=== PATIENT | female | born 2000 | race Caucasian/White ===

== ENCOUNTER 2021-04-29 12:49 | Emergency (ER) | payer OTHER, SELFPAY ==
[2021-04-29 12:57] VITALS: BP 141/87; PULSE 105; RESP 20; TEMP 37.3; O2SAT 100; BMI 46.5
[2021-04-29 13:36] LABS: COVID-19 Test Negative (Negative); IDNOW Serial# 9DD0AD1C
--- NOTE | 2021-04-29 13:52 | ED.GENADULT ---
HPI - General Adult General Chief complaint: Dyspnea Stated complaint: diff breathing Time Seen by Provider: 04/29/21 13:52 Source: patient Limitations: no limitations History of Present Illness HPI narrative: Patient presents to the ER with longstanding history of asthma. Increased use of inhalers lately. Patient also has a congested cough that is productive yellow sputum. Patient states she has had some posttussive vomiting after coughing fit. Patient states he also ran out of her inhaler. Patient has not recently been on steroids. 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 Patient does not smoke tobacco. No history of COVID-19. Symptoms are mild to moderate symptoms have improved since using her inhaler. Related Data Previous Rx's Medication Instructions Recorded albuterol sulfate [ProAir HFA] 2 puff INHALATION Q4-6H PRN #8.5 g 04/29/21 azithromycin [Zithromax] See Rx Instructions .ROUTE 04/29/21 .COMPLEX #6 tab benzonatate [Tessalon Perles] 100 mg PO BID PRN #10 cap 04/29/21 Allergies Allergy/AdvReac Type Severity Reaction Status Date / Time No Known Allergies Allergy Unverified 07/16/20 16:53 Pt states no known allergy to Allergy Unknown Uncoded 08/11/17 00:00 Review of Systems Review of Systems: Yes all other systems are reviewed and are negative Constitutional: Constitutional: Denies chills, Denies fever(s), Denies headache(s), Denies snoring and Denies weakness ENT: Denies headache(s), Reports nasal congestion, Denies neck pain and Denies sore throat Cardiovascular: Cardiovascular: Denies chest pain, Denies chest pain with activity and Reports dyspnea Respiratory: Respiratory: Reports cough, Denies hemoptysis, Reports dyspnea and Denies snoring Gastrointestinal: Gastrointestinal: Denies nausea and Denies vomiting Musculoskeletal: Musculoskeletal: Reports no additional musculoskeletal complaints and Denies neck pain Neurologic: Denies headache(s) and Denies weakness PMFSH Past Medical History Attestation statement: The following information was validated with the patient. Medical History Asthma Social History Social History Advance Directives: No Advance Directives Information Provided: No Patient : No Physical Exam Vital Signs: Vital Signs: Last Vital Signs Temp 99.1 F 04/29/21 12:57 Pulse 105 H 04/29/21 12:57 Resp 20 04/29/21 12:57 BP 141/87 H 04/29/21 12:57 Pulse Ox 100 04/29/21 12:57 Body Mass Index 46.5 vital signs have been reviewed as normal and appeared to be correct. Blood pressure normal. Heart rate normal. Respiration rate normal. Temperature normal. Oxygen saturation normal. Appearance: Alert. Oriented X3. No acute distress. Head: Normal external exam. Normocephalic. Atraumatic. Eyes: PERRLA. EOMI. ENT: Pharynx normal. Uvula midline. Moist mucous membranes. Neck: Soft full range of motion CVS: Heart regular rate and rhythm no murmurs and rubs Respiratory: Breath sounds clear no use of accessory muscles Skin: Skin warm and dry. Normal skin color. Normal skin turgor. Extremities: No lower extremity edema. Extremities exhibit normal range of motion. Extremities nontender. Neuro: Oriented X 3. No motor deficit. No sensory deficit. Reflexes normal. Course Course Course Narrative: Asthma exacerbation Acute bronchitis Viral syndrome Reactive airway disease Seasonal allergies COVID-19 screening 1:55 p.m. lung sounds are clear to auscultation no accessory muscle use plan to give patient a for inhaler at this time and put patient on Tessalon Perles for cough COVID-19 test is negative. Medical Decision Making Lab Data Labs: Lab Results 04/29/21 Range/Units 13:13 COVID-19 (RICARDA) Negative (Negative) COVID-19 Clin Com See Note Discharge Plan Discharge Clinical Impression: Asthma with exacerbation Patient Disposition: Home, Self-Care Instructions: Asthma (ED) Additional Instructions: COVID-19 test is negative it is recommended you get vaccinated continue your inhalers as directed Prescriptions: New azithromycin [Zithromax] 250 mg tablet See Rx Instructions .ROUTE .COMPLEX Qty: 6 RF: 0 albuterol sulfate [ProAir HFA] 90 mcg/actuation HFA aerosol inhaler 2 puff inhalation Q4-6H PRN (Reason: shortness of breath or wheezing) Qty: 8.5 RF: 2 benzonatate [Tessalon Perles] 100 mg capsule 100 mg PO BID PRN (Reason: cough) Qty: 10 RF: 0
== END 2021-04-29 14:16 | disposition home or self-care (01) ==
PROVIDERS: Emergency Provider Emergency Medicine Emergency Medical Services
DX: J45.901 Unspecified asthma with (acute) exacerbation (principal); Z20.822 Contact with and (suspected) exposure to COVID-19
CPT/HCPCS: 36415; 87635; 99282; 99283; 99284

== ENCOUNTER 2025-06-27 12:26 | Emergency (ER) | payer OTHER, SELFPAY ==
--- OUTSIDE RECORDS SUMMARY | 2025-06-26 13:15 | XMS_ITS | Encounter Summary ---
Author Organization [facility] Address [address] [place] [address] Care Team Providers Care Shale Planer Operator Name Role Phone Brandon Crabtree Primary Care Provider [phone] Reason for Referral * Consultation (Urgent) - Authorized Specialty Diagnoses / Procedures Referred By Contac t Referred To Contact Cardiology Diagnoses PVC (premature ventricular contraction) Ita Chapman MD [address] [place] [address] Phone: tel: fax: Brenna Key MD [address] [facility] [address] [place] [address] Phone: tel: fax: Referral ID Status Reason Start Date Expiration Date Visits Requested Visits Authorized [id number] Authorized Specialty Services Required 06/26/2025 06/26/2026 12 12 Reason for Visit * Reason Comments Dizziness X 1 YR. Worse in aft ernoons. UTI Frequent urination a t night x 1 week Encounter Details Date Type Department Care Team ([facility] st Contact Info) Description 06/26/2025 1:15 PM EDT Office Visit Adult Medicine [address] [phone] tIa Chapman MD [address] [place] [address] Dizziness (Primary Dx); Urinary symptom or sign; PVC (premature ventricular contraction) Social History Tobacco Use Types Packs/Day Years Used Date Smoking Tobacco: Never Smokeless Tobacco: Never Tobacco Cessation:Counseling Given: Not Answered Alcohol Use Standard Drinks/Week Comments Yes 0 (1 standard drink = 0.6 oz pur e alcohol) Housing Instability Answer Date Recorde d Are you worried that in the next 2 months you may not have stable housing? No 03/14/2025 Food Access & Nutrition Answer Date Rec orded Do you have access to a vari ety of food including fruits and vegetables? Yes 03/14/2025 Health Literacy Answer Date Recorded How often do you need to hav e someone help you when you read instructions, pamphlets, or other written material from your doctor or pharmacy? Never 03/14/2025 Caregiver: How often do you need to have someone help you when you read instructions, pamphlets, or other written material from your doctor or pharmacy? Not on file 03/14/2025 Financial Risk Answer Date Recorded How hard is it for you to pa y for the very basics like food, housing, medical care, and air conditioning / heating? Not very hard 03/14/2025 Transportation Answer Date Recorded Has the lack of transportati on kept you from meetings, work, or from getting things needed for daily living? No Has the lack of transportati on kept you from medical appointments or from getting medications? No 03/14/2025 Social Isolation Answer Date Recorded How often do you feel lonely or isolated from th ose around you? Never 03/14/2025 Food Risk Answer Date Recorded Within the past 12 months we worried whether our food would run out before we got money to buy more. Never true 03/14/2025 Within the past 12 months th e food we bought just didn't last and we didn't have money to get more. Never true 03/14/2025 Dependent Care Answer Date Recorded Do you need help finding or paying for care for your loved ones. For example, childcare aide or elderly care for an older adult? No 03/14/2025 Education Answer Date Recorded Do you think completing more education or training, like finishing a GED, going to college, or learning a trade, would be helpful for you? No 03/14/2025 Employment and Income Answer Date Recor ded During the last four weeks, have you been actively looking for work? No 03/14/2025 Living Situation Answer Date Recorded What is your living situation? 0 03/14/2025 Comments No Sex and Gender Information Value Date Recorded Sex Assigned at Not on file Legal Sex Female 5:16 AM EST Gender Identity Not on file Sexual Orientation Not on file documented as of this encounter Last Filed Vital Signs Vital Sign Reading Time Taken Comments Blood Pressure 134/76 06/26/2025 1:23 PM EDT Pulse 47 06/26/2025 1:23 PM EDT Temperature 36.3 C (97.4 F) 06/26/2025 1:23 PM EDT Respiratory Rate 14 06/26/2025 1:23 PM EDT Oxygen Saturation 97% 06/26/2025 1:23 PM EDT Inhaled Oxygen Concentration - - Weight 129 kg (284 lb) 06/26/2025 1:23 PM EDT Height 165.1 cm (5' 5 ) 06/26/2025 1:23 PM EDT Body Mass Index 47.26 06/26/2025 1:23 PM EDT documented in this encounter Progress Notes * Aliza Hillman MA - 06/26/2025 1:15 PM EDT Bp lying down 124/71 pulse 73 Bp sitting up 135/75 pulse 43 Bp standing up 114/67 pulse 55 Blood sugar 96 1 hr pp Urine dip all negative Electrocardiogram performed and reviewed by Dr. Ita Banks MD. * Ita Chapman MD - 06/26/2025 1:15 PM EDT Images from the original note were not included. Chief Complaint Clara Womack is a 25 y.o. female presenting for Dizziness (X 1 YR. Worse in afternoons. ) and UTI (Frequent urination at night x 1 week) Subjective Patient presents to the office today complaining of exacerbation of dizziness for aprox one year, exacerbated for the last week, worse in the afternoons. Does not identify any clear triggers. Strong family history of Afib. She also complains of urinary symptoms, no fever, chills. The following portions of the patient's history were reviewed by a provider in this encounter and updated as appropriate: Allergies: She has No Known Allergies. Medications: Current Outpatient Medications Medication Instructions albuterol HFA (Ventolin HFA) 90 mcg/actuation inhaler 2 puffs, inhalation, Every 4 hours PRN cetirizine (ZYRTEC) 10 mg, oral, Daily escitalopram (LEXAPRO) 10 mg, oral, Daily fluticasone propionate (FLONASE) 50 mcg/actuation nasal spray 2 Sprays by Nasal route daily. furosemide (LASIX) 20 mg, oral, Daily PRN levothyroxine (SYNTHROID, LEVOTHROID) 50 mcg, oral, Daily predniSONE (DELTASONE) 10 mg tablet Take 2 tabs PO daily for 3 days then 1 tab PO daily for 4 days Objective BP 134/76 Pulse (!) 47 Temp 36.3 ??C (97.4 ??F) (Temporal) Resp 14 Ht 1.651 m (65 ) Wt 129 kg (284 lb) BMI 47.26 kg/m?? SpO2: 97 % Physical Exam Vitals reviewed. Constitutional: Appearance: Normal appearance. Cardiovascular: Rate and Rhythm: Normal rate and regular rhythm. Heart sounds: Normal heart sounds. Pulmonary: Effort: Pulmonary effort is normal. Breath sounds: Normal breath sounds. Musculoskeletal: General: No swelling. Normal range of motion. Cervical back: Neck supple. Skin: General: Skin is warm. Neurological: General: No focal deficit present. Mental Status: She is alert. VS fluctuant Bp lying down 124/71 pulse 73 Bp sitting up 135/75 pulse 43 Bp standing up 114/67 pulse 55 Lab Results Component Value Date TSH 2.59 03/14/2025 Assessment/Plan Assessment & Plan Dizziness Patient complains of dizziness for 1 year, exacerbation over the last week. She does not identify any triggers. Patient admits been drinking coffee and energy drinks last year, however she cut down with them. Currently not on any supplements, herbs, [id number] medications. She is on levothyroxine 50 mcg a day. Last TSH within normal limits in February. EKG in the office showed frequent PVCs. CBG was 94. Will check a BMP, magnesium levels. Referral was placed for urgent cardiology evaluation. Red flags were discussed with the patient today. Orders: POC glucose manually resulted ECG 12 lead Basic metabolic panel; Future Magnesium; Future Urinary symptom or sign Urine dipstick was negative for infection. Recommended to increase water intake, cranberry juice Orders: POC Urine Auto W/O Micro PVC (premature ventricular contraction) As above. Orders: Basic metabolic panel; Future Magnesium; Future Ambulatory referral to Cardiology; Future All questions and concerns were addressed. Patient verbalizes understanding and agrees with above treatment plan. Patient was advised to contact the office with any worsening symptoms or if new or existing problems arise. Patient to follow- up with her primary care team. Ita Mendoza MD ADULT MEDICINE [address] [address] Dept: [phone] Dept Date of Visit: 06/26/2025 documented in this encounter Plan of Treatment Upcoming Encounters Date Type Department Care Team (Late st Contact Info) Description 07/08/2025 10:20 AM EDT Office Visit [facility] [address] [facility] [address] [place] [phone] Brenna Key MD [address] [place] [address] [address] [place] [address] 07/25/2025 2:30 PM EDT Office Visit Hematology Oncology [address] [place] [phone] Thomas Cowart MD [address] [place] [phone] Scheduled Referrals Name Type Priority Associated Diagnoses Order Schedule Ambulatory referral to Cardiology Outpatient Referral Routine PVC (premature ventricular contraction) 1 Occurrences starting 06/26/2025 until 06/26/2026 documented as of this encounter Procedures Procedure Name Priority Date/Time Associated Diagnosis Comments ECG 12-LEAD Routine 06/26/2025 3:25 PM EDT Dizziness POC URINE AUTO W/O MICRO Routine 06/26/2025 1:48 PM EDT Urinary symptom or sign POC GLUCOSE Routine 06/26/2025 1:47 PM EDT Dizziness documented in this encounter Results * ECG 12 lead (06/26/2025 3:25 PM EDT) Ita Chapman MD ECG ORDERABLES Fi nal Result * Magnesium (06/26/2025 2:08 PM EDT) [facility] Magnesium 2.0 1.9 - 2.6 mg/dL LAB CHEMISTRY METHOD 06/26/2025 5:08 PM EDT [facility] Blood Venous blood specimen / Unknown Venipuncture / Unknown 06/26/2025 2:08 PM EDT 06/26/2025 2:08 PM EDT Ita Chapman MD LAB BLOOD ORDERABL ES Final Result [facility] [address] [place] [address], [place] [phone] * Basic metabolic panel (06/26/2025 2:08 PM EDT) [facility] Sodium 137 133 - 145 mmol/L LAB CHEMISTRY METHOD 06/26/2025 5:09 PM EDT [facility] Potassium 4.1 3.5 - 5.5 mmol/L LAB CHEMISTRY METHOD 06/26/2025 5:09 PM EDT [facility] Chloride 104 96 - 110 mmol/L LAB CHEMISTRY METHOD 06/26/2025 5:09 PM EDT [facility] CO2 29 21 - 32 mmol/L LAB CHEMISTRY METHOD 06/26/2025 5:09 PM EDT [facility] Anion Gap 4 3 - 11 LAB CHEMISTRY METHOD 06/26/2025 5:09 PM EDT [facility] Glucose 94 70 - 100 mg/dL LAB CHEMISTRY METHOD 06/26/2025 5:09 PM EDT [facility] BUN 18 5 - 25 mg/dL LAB CHEMISTRY METHOD 06/26/2025 5:09 PM EDT [facility] Creatinine 0.73 0.50 - 1.10 mg/dL LAB CHEMISTRY METHOD 06/26/2025 5:09 PM EDT [facility] eGFR 118 >=60 mL/min/1. 73m2 LAB CHEMISTRY METHOD 06/26/2025 5:09 PM EDT [facility] Comment:Calculation based on the Chronic Kidney Disease Epidemiology Collaboration (CKD-EPI) equation refit without adjustment for race. BUN/Creatinine Ratio 24.7 LAB CHEMISTRY METHOD 06/26/2025 5:09 PM EDT [facility] Calcium 9.8 8.5 - 10.5 mg/dL LAB CHEMISTRY METHOD 06/26/2025 5:09 PM EDT [facility] Blood Venous blood specimen / Unknown Venipuncture / Unknown 06/26/2025 2:08 PM EDT 06/26/2025 2:08 PM EDT us Ita Chapman MD LAB BLOOD ORDERABL ES Final Result [facility] [address] [place] [address], * (ABNORMAL) POC Urine Auto W/O Micro (06/26/2025 1:48 PM EDT) Leukocytes UA POC Negative Negative Nitrite UA POC Negative Negative Urobilinogen UA POC Negative Negative Protein UA POC Negative Negative PH UA POC 5.0 5.0 - 9.0 Blood UA POC Negative Negative, Trace Specific Parrott UA POC 1.000(A) 1.001 - 1.035 Ketones UA POC Negative Negative Bilirubin UA POC Negative Negative Glucose UA POC Normal Normal, Trace Color UA POC Yellow CLARITY, URINE POC Clear Urine Urine specimen obtained by clean catch procedure / Unknown 06/26/2025 1:48 PM EDT Ita Chapman MD POINT OF CARE TEST ENTER/EDIT ORDERABLES Final Result * POC glucose manually resulted (06/26/2025 1:47 PM EDT) Glucose POC 96 mg/dL Blood Capillary blood specimen / Unknown 06/26/2025 1:47 PM EDT Ita Chapman MD POINT OF CARE TEST ENTER/EDIT ORDERABLES Final Result documented in this encounter Visit Diagnoses Diagnosis Dizziness- Primary Dizziness and giddiness Urinary symptom or sign PVC (premature ventricular contraction) Other premature beats documented in this encounter Discontinued Medications Medication Sig Discontinue Reason Start Date End Da te meclizine (ANTIVERT) 25 mg tablet Take 1 tablet (25 mg total) by mouth 3 (three) times a day if needed for dizziness. Cost of medication 03/14/2025 06/26/2025 ondansetron ODT (ZOFRAN-ODT) 8 mg disintegrating tablet Dissolve 1 tablet (8 mg total) on top of the tongue every 8 (eight) hours if needed for nausea or vomiting. Cost of medication 03/14/2025 06/26/2025 traZODone (DESYREL) 50 mg tabletIndications:Easy bruisability,Elevated cholesterol,Exercise-noe conner asthma,Morbid obesity (CMS/HCC V24, CMS/HCC V28),Persistent depressive disorder,Leg swelling,Primary insomnia Take 1-3 tablets (50-150 mg total) by mouth at bedtime as needed for sleep. 03/14/2025 06/26/2025 predniSONE (DELTASONE) 10 mg tablet Take 2 tabs PO daily for 3 days then 1 tab PO daily for 4 days Therapy completed 01/08/2025 06/26/2025 documented as of this encounter Care Teams Shale Planer Operator Relationship Specialty Start Date End Date Brandon Crabtree PA [address] [place] [address] PCP - General Internal Medicine 10/28/21 documented as of this encounter
--- NOTE | ~2025-06-27 | XR_ITS ---
EXAMINATION: XR CHEST CLINICAL INFORMATION: dyspnea COMPARISON: None available. TECHNIQUE: 2 views of the chest were obtained. FINDINGS: No significant abnormality is noted involving the heart, lungs, mediastinum, bony thorax or soft tissues. XR/XR chest 2V IMPRESSION: Unremarkable examination. Electronically signed by: Valentino Au MD 06/27/2025 01:57 PM EDT RP
[2025-06-27 12:35] VITALS: BP 139/77; PULSE 88; RESP 16; TEMP 36.7; O2SAT 98; BMI 46.8
--- NOTE | 2025-06-27 12:37 | ECG_ITS ---
Test Reason : CHEST PAIN Blood Pressure : */* mmHG Vent. Rate : 72 BPM Atrial Rate : 72 BPM P-R Int : 154 ms QRS Dur : 80 ms QT Int : 418 ms P-R-T Axes : 55 48 42 degrees QTcB Int : 457 ms Normal sinus rhythm Nonspecific ST and T wave abnormality Borderline ECG When compared with ECG of 07-Sep-2013 21:51, No significant changes seen Referred By: Adán Figueroa Electronically Signed By: AUTUMN JIMENEZ
--- NOTE | 2025-06-27 12:37 | ED_ITS ---
HPI - General Adult General Chief complaint: Dizziness Stated complaint: sob, dizzy from time to time Time Seen by Provider: 06/27/25 12:44 Source: patient, family and old records reviewed Mode of arrival: ambulatory Limitations: no limitations History of Present Illness ED Provider: RONALDO JUAREZ narrative: 25 yo female with PMH of PCOS and hypothyroidism here with c/o 1 month of dizzy episodes, chest tightness, LEOS, she went to PCP yesterday and had PCP and her was in 40s so she was referred to cardiology. She has no ordered for holter echo. She states symptoms come and go. She has no recent travel/procedures/no IVDA and no hormone use. She came today as she had no improvement. MD complaint: chest pain, LEOS Onset (ago): month(s) (1) Location: chest Radiation: non-radiation Severity: mild Pain Consistency: intermittent Relieving factors: none Exacerbating factors: movement Associated symptoms: chest pain, shortness of breath and weakness Treatments prior to arrival: none Related Data Previous Rx's ?Medication ?Instructions ?Recorded albuterol sulfate 90 mcg/actuation 2 puff inhalation Q 4-6H PRN 04/29/21 aerosol inhaler (ProAir HFA) shortness of breath or wh eezing #8.5 grams azithromycin 250 mg tablet See Rx Instructions PO .COM PLEX #6 04/29/21 (Zithromax) tabs benzonatate 100 mg capsule 100 mg PO BID PRN cough #10 caps 04/29/21 (Tessalon Perles) Allergies Allergy/AdvReac Type Severity Reaction Status Date / Time No Known Allergies Allergy Verified 06/27/25 12:38 Review of Systems 2 Review of Systems: Constitutional : No Weight loss, No Fever, No Chills ENT/Mouth : No sore throat, No Rhinorrhea Eyes: No Eye Pain, No Swelling Cardiovascular : pos Chest Pain, pos SOB, pos Dyspnea on Exertion, No Orthopnea, No Edema, No Palpitations Respiratory : No Cough, No Sputum Gastrointestinal : pos Nausea, No Vomiting, No Diarrhea, No abdominal Pain, No Hematochezia, No Melena Genitourinary : No Dysuria, No Urinary Frequency Musculoskeletal : No joint pain, No Myalgias, No Joint Swelling Skin : No Skin Lesions, No rash All other systems reviewed and are negative [facility] Past Medical History Attestation statement: The following information was validated with the patient. Source: old records reviewed Medical History Asthma Social History Social History (Updated 06/27/25 @ 13:42 by Tiffany Sosa DO) Patient Tobacco Use Status: Former Tobacco user Advance Directives: No Advance Directives Information Provided: Yes Do you have a plan to hurt others: No Plan Physical Exam ED Vital Signs: Vital Signs - 24 hr 06/27/25 12:35 Temperature 98.0 F Pulse Rate 88 Respiratory Rate 16 Blood Pressure 139/77 Pulse Oximetry 98 Oxygen Delivery Method Room Air BMI result Body Mass Index 46.8 Appearance: Alert. Oriented X3. No acute distress. Eyes: Pupils equal, round and reactive to light. ENT: Pharynx normal. Neck: Normal inspection. Neck supple. CVS: Normal heart rate and rhythm. Pulses normal. Respiratory: No respiratory distress. Breath sounds normal. Abdomen: Soft and nontender. Skin: Skin warm and dry. Normal skin color. Normal skin turgor. Extremities: No lower extremity edema. No calf ttp Neuro: Oriented X 3. No motor deficit. No sensory deficit. CN2-12 intact Course Course Course Narrative: RME, this is a rapid medical exam performed by Matt Figueroa please refer to primary provider for complete H&P- 25-year-old female presents for evaluation of shortness of breath and dizziness. She reports this has been going on for about 1 year. She went to her doctor yesterday and was told that she had a low heart rate. Plan for chest x-ray, viral swabs and labs as well as an EKG Medical Decision Making Medical Decision Making MDM Narrative: 25 yo female with PMH of PCOS and hypothyroidism here with 1 month of chest pressure, dizzy spells, LEOS - mom states there is family hx of afib and CAD in late 30s/40s. They are both very anxious. She had EKG with PCP yesterday showing PVCs but they thought it was afib. At this time given her history will obtain EKG, troponin and ddimer. I am going to obtian CXR as well. She is low prob for VTE and her heart score is 2. She has been having this for a month doubt this is dissection. She notes it is worse with stress and smoke exposure could be anxiety or reactive airway disease. Differential Diagnosis Differential Diagnoses: The differential diagnosis associated with the presentation includes anxiety, reactive airway disease, hypothyroidism, lyte abnormality Admission/Observation Consideration of admission/observation: Escalation of care including admission/observation considered work up reassuring stable for DC Lab Data MDM Lab Attestation statement: I reviewed the patient's lab results. 06/27/25 13:00 06/27/25 13:00 Labs: Lab Results 06/27/25 06/27/25 06/27/25 Range/Units 13:00 13:26 13:42 WBC 6.5 (4.8-10.8) X10*3/uL RBC 4.82 (4.20-5.50) X10*6/uL Hgb 14.0 (12.0-16.0) g/dl Hct 41.4 (37.0-47.0) % MCV 85.9 (80.0-98.0) fL MCH 29.0 (27.0-33.0) pg MCHC 33.8 (31.0-35.0) g/dl RDW 12.7 (11.0-16.0) % Plt Count 304 (160-400) X10*3/uL MPV 11.5 (9.4-12.3) fL Immature Gran % (Auto) 0.2 (0.0-0.4) % Neut % (Auto) 59.3 (45-73) % Lymph % (Auto) 30.5 (20-40) % Miller % (Auto) 8.6 (2-11) % Eos % (Auto) 0.8 (0-4) % Baso % (Auto) 0.6 (0-2) % Lymph # (Auto) 2.0 (1.2-4.9) X10*3/uL Miller # (Auto) 0.6 (0.1-1.2) X10*3/uL Eos # (Auto) 0.1 (0.0-0.4) X10*3/uL Baso # (Auto) 0.0 (0.0-0.2) X10*3/uL Abs Immat Gran (auto) 0.01 (0.00-0.03) X10*3/uL Absolute Neuts (auto) 3.9 (2.0-8.3) x10*3/uL Absolute Nucleated RBC 0.000 (0.0-0.012) X10*3/uL Nucleated RBC % (auto) 0.0 (0.0-0.2) /100WBC D-Dimer High Sensitivty < 150 NG/ML Sodium 142 (135-145) mmol/L Potassium 4.2 (3.3-5.1) mmol/L Chloride 106 (96-108) mmol/L Carbon Dioxide 28 (22-29) mmol/L Anion Gap 12 (12-20) BUN 14 (9-16) mg/dL Creatinine 0.73 (0.5-1.4) mg/dL Estim Creat Clear Calc 159.8 Estimated GFR > 60 Random Glucose 93 (60-115) mg/dL Calcium 9.7 (8.4-10.2) mg/dL Total Bilirubin 0.4 (0.0-1.0) mg/dL AST 16 (5-31) U/L ALT 16 (0-31) U/L Alkaline Phosphatase 58 (39-117) U/L Troponin I High Sens < 2.7 (<3.5-17.0) ng/L B-Natriuretic Peptide 48 (<100) pg/mL Total Protein 7.0 (6.5-8.0) g/dL Albumin 4.5 (3.5-5.0) g/dL Lipase 20 (8-78) U/L TSH 1.94 (0.32-4.0) uIU/mL Beta HCG, Quant < 2 mIU/mL Urine Color Yellow Urine Appearance Clear Urine pH 7.0 (5.0-9.0) Ur Specific [place] 1.020 (1.005-1.025) Urine Protein Negative (Neg-Trace) mg/dL Urine Glucose (UA) Negative (Negative) mg/dL Urine Ketones Trace (Negative) mg/dL Urine Blood Negative (Negative) Urine Nitrite Negative (Negative) Ur Leukocyte Esterase Small (1+) H (Negative) Urine RBC 0-2 (0-2) /HPF Urine WBC 0-5 (0-5) /HPF Ur Squamous Epith Cells 3-5 (0-2) /HPF Urine Bacteria 1+ (None Seen) Hyaline Casts 0-2 (0-2) /LPF COVID-19 (RICARDA) Negative (Negative) COVID-19 Clin Com See Note Influenza Type A (ELISA) Negative (Negative) Influenza Type B (ELISA) Negative (Negative) Influenza A & B Note See Note Independent Interpretation I performed an independent interpretation of an: EKG and Plain X-Ray (normal ) Interpretation: Rate: 72 Rhythm: NSR Galliano: normal Normal P waves. Normal THIAGO. Normal QRS complex. ST T wave : inverted t waves V1, V2, V3 qTC: 452 prior studies: no change from 2022 The study has been interpreted contemporaneously by me. . Radiology Impression Discussion of test interpretation with radiology: I have reviewed the radiologist's reading. Independent Historian Clinical information obtained from an independent historian. History obtained from or confirmed by: Parent External Record Review External record reviewed: Outpatient record Discharge Plan Discharge Clinical Impression: Exertional dyspnea, Atypical chest pain Patient Disposition: Home, Self-Care Instructions: Chest Pain (ED), Dyspnea (ED) Additional Instructions: your chest xray, EKG were reassuring your blood counts including electrolytes are normal your thyroid test was normal your heart tests including heart enzyme, congestive heart failure test and blood clot test were all normal you need to talk to your primary care doctor about a holter monitor and ECHO test return for any worsening symptoms or concerns. Prescriptions: No Action azithromycin [Zithromax] 250 mg tablet See Rx Instructions .ROUTE .COMPLEX Qty: 6 0RF Rx Instructions: take 500 mg today (day 1), then 250 mg for 4 days (days 2-5) albuterol sulfate [ProAir HFA] 90 mcg/actuation HFA aerosol inhaler 2 puff inhalation Q4-6H PRN (Reason: shortness of breath or wheezing) Qty: 8.5 2RF benzonatate [Tessalon Perles] 100 mg capsule 100 mg PO BID PRN (Reason: cough) Qty: 10 0RF Print Language: Lao
[2025-06-27 13:12] LABS: MANUAL DIFF FLAG NO
[2025-06-27 13:15] LABS: Hematocrit 41.4 % (37.0-47.0); Hemoglobin 14.0 g/dl (12.0-16.0); Imm Gran Abs Auto 0.01 X10*3/uL (0.00-0.03); Imm Gran Pct Auto 0.2 % (0.0-0.4); Lymphocytes Absolute Auto 2.0 X10*3/uL (1.2-4.9); Mean Corpuscular HGB Conc 33.8 g/dl (31.0-35.0); Mean Corpuscular Hemoglobin 29.0 pg (27.0-33.0); Mean Corpuscular Volume 85.9 fL (80.0-98.0); NRBC Abs Auto 0.000 X10*3/uL (0.0-0.012); NRBC Pct Auto 0.0 /100WBC (0.0-0.2); Platelet Count 304 X10*3/uL (160-400); Red Blood Count 4.82 X10*6/uL (4.20-5.50); White Blood Count 6.5 X10*3/uL (4.8-10.8)
--- OUTSIDE RECORDS SUMMARY | 2025-06-27 13:21 | XMS_ITS | Encounter Summary ---
Author Organization [facility] Address [address] [place] [address] Care Team Providers Care Machine Brush Maker Name Role Phone Brandon Crabtree Primary Care Provider [phone] Reason for Visit * Reason Onset Date Comments Abdominal Pain 06/26/2025 Dizziness 06/26/2025 Encounter Details Date Type Department Care Team (Late st Contact Info) Description 06/26/2025 Telephone Adult Medicine [address] [phone] Brandon Crabtree PA [address] [place] [address] Social History Tobacco Use Types Packs/Day Years Used Date Smoking Tobacco: Never Smokeless Tobacco: Never Alcohol Use Standard Drinks/Week Comments Yes 0 [...] care for your loved ones. For example, early childhood aide classroom or elderly care for an older adult? [...] on file documented as of this encounter Progress Notes * Brittany Puckett RN - 06/26/2025 11:24 AM EDT Spoke with pt. She is having multiple symptoms , She states yesterday she developed a sharp pelvic pain that lasted for hours 2-3 then resolved it made her feel nauseated and vomited x 1 . No pelvic pain now , no fever or chills, no abd. Pain , no burning with urination but does have increase freq.Of urination and decrease amt. , no headache, pt. Does have pcos . She has noted a little bit more vaginal discharge then her norm , no strong odor . During conversation pt. States she is dizzy pretty much everyday it last for seconds then goes away . She is still doing her normal days activities, she has noted over last 2 months she is more winded then normal . No wheezing , no chest pain, nosob at present time, no calf pain , redness or heat in lower legs, no render areas. 'I don't have aclot . She is completing full sentences without apparent difficulty. Advised pt. -apt. Today for dizziness and winded symptoms and to r/o uti with increase freq. 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 To call [facility] for an apt. Pt. Agrees and advised if symptoms of cp,sob or weakness to be evaluated in the ER. Pt. agrees * Joanne Ej - 06/26/2025 10:57 AM EDT Patient call requires triage: Symptoms patient is presenting: Patient's mother is calling. The patient is having abdominal pain. Patient told mom it might be her PCOS. Also having some dizziness. Mom had to pick her up from work yesterday for the dizziness. How long has patient had these symptoms?: a couple of days For ALL patients calling to schedule any appointment (routine, sick visit, follow up, consult, etc.) in the outpatient setting please ask the following questions: Do you have fever of higher than 101, sore throat with difficulty swallowing or severe shortness ofbreath? no If YES to any of these above symptoms, send a message to triage and do not book. Red dot. If no, an audio or video visit should be booked. Have you had close contact with someone with Coronavirus in the last 14 days? no Have you traveled abroad? no Have you traveled recently to another state outside of [place], [place], [place], [place], [place], [place], [place]? no o If yes, did you quarantine for 14 days or have a negative covid test? no If yes to any of the above, patient is not to be scheduled in office until after 14 day quarantine or negative covid test. If pain or injury related was it due to an accident at work or from a motor vehicle accident? If yes, date of accident/Injury: No If yes, gather 3rd green party insurance information Third Libertarian Information: not applicable PCP: ASIA Sharp Payor: [employer] [facility] / Plan: [employer] HMO / Product Type: *No Product type* / documented in this encounter Plan of Treatment Upcoming Encounters Date Type Department Care Team (Late st Contact Info) Description 07/08/2025 10:20 AM EDT Office Visit [facility] [address] [facility] [address] [place] [address] Brenna Key MD [address] [place] [address] [address] [place] [address] 07/25/2025 2:30 PM EDT Office Visit [facility] [address] [place] [phone] Thomas Cowart MD [address] [place] [phone] documented as of this encounter Visit Diagnoses Not on filedocumented in this encounter Care Teams Machine Brush Maker Relationship Specialty Start Date End Date Brandon Crabtree PA [address] [place] [address] PCP - General Internal Medicine 10/28/21 documented as of this encounter
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
--- OUTSIDE RECORDS SUMMARY | 2025-06-27 13:21 | XMS_ITS | Clinical Summary ---
Author Organization [facility] Address [address] [place] [phone] Phone Care Team Providers Care Brake Coupler Dinkey Name Role Phone Unavailable Primary Care Provider Unavailabl e Immunizations Immunization Administration Dates Next Due DTaP 5 07/06/2005, 3,2001,2001 ,2001 Hep B, ped/adol 04/02/2003,04/23/2002,2001 Hib (PRP-T) 04/02/2003,2001,2001 ,2001 IPV 07/06/2005,04/02/2003,2001 ,2001 Influenza, injectable, trivalent 08/14/2007,08/30,09/02/2004,10/01/2003 MMR 07/06/2005,04/23/2002 Pneumococcal Conjugate 05/22/2003,2001,,2001 Varicella 02/29/2008,04/23/2002 Family History Relation Name Status Comments Brother 1 Alive Brother: Asthma , Asthma Brother 2 Alive Brother: Asthma , Asthma Father Alive Father: Asthma Maternal Grandfather Materna l grandfather: High BP, Diabetic Mother Alive Mother: Asthma Social History Tobacco Use Types Packs/Day Years Used Date Smoking Tobacco: Never Assessed Comments Unknown Sex and Gender Information Value Date Recorded Sex Assigned at Not on file Legal Sex Female 4:26 PM EDT Gender Identity Not on file Sexual Orientation Not on file Plan of Treatment Health Maintenance Due Date Last Done Comments DTaP,Tdap,and Td Vaccines (6 - Tdap) 01/27/2012 07/06/2005, 04/02/2003, 2001, Additional history exists HPV Vaccines (1 - 3-dose series) 01/27/2016 COVID-19 Vaccine ( season) 2024 Influenza Vaccines (#1) 2025 08/14/20, 09/13/2005, 09/02/2004, Additional history exists HIB Vaccines Completed 04/02/2003, 07/30, 2001, Additional history exists Hepatitis B Vaccines Completed 04/02/2003, 04/23/2002, 2001 Pneumococcal Vaccine Completed 05/22/2003, 2001, 2001, Additional history exists IPV Vaccines Completed 07/06/2005, 01/2003, 2001, Additional history exists MMR Vaccines Completed 07/06/2005, 04/23/2002 Varicella Vaccines Completed 02/29/2008, 04/23/2002 Hepatitis A Vaccines Aged Out No long er eligible based on patient's age to complete this topic Men B Vaccine Aged Out No longer elig ible based on patient's age to complete this topic Meningococcal Vaccine Aged Out No errol mejia eligible based on patient's age to complete this topic
--- OUTSIDE RECORDS SUMMARY | 2025-06-27 13:21 | XMS_ITS ---
Author Name [facility] Organization Unknown Care Team Organization Name Specialty Phone Email Start Date End Da te [facility] Kayla Bryant Primary Care 03/06/20232023 [facility] Brandon Crabtree Primary Care 09/06/2022
--- OUTSIDE RECORDS SUMMARY | 2025-06-27 13:21 | XMS_ITS | Encounter Summary ---
Author Organization [facility] Address [address] [place] [id number] Phone Care Team Providers Care Wire Weaver Helper Name Role Phone Tashia Matute NP Primary Care Provider Katiuska hebert Encounter Details Date Type Department Care Team (Late st Contact Info) Description 06/15/2017 Conversion Encounter [facility] - [address] [phone] Social History Tobacco Use Types Packs/Day Years Used Date Smoking Tobacco: Never Assessed Comments Unknown Sex and Gender Information Value Date Recorded Sex Assigned at Not on file Legal Sex Female 4:26 PM EDT Gender Identity Not on file Sexual Orientation Not on file documented as of this encounter Plan of Treatment Not on file documented as of this encounter Visit Diagnoses Not on filedocumented in this encounter Care Teams Wire Weaver Helper Relationship Specialty Start Date End Date Tashia Matute NP PCP - General 06/09/17 04/19/23 documented as of this encounter
[2025-06-27 13:29] LABS: Alanine Aminotransferase 16 U/L (0-31); Albumin Level 4.5 g/dL (3.5-5.0); Alkaline Phosphatase 58 U/L (39-117); Anion Gap 12 (12-20); Aspartate Amino Transferase 16 U/L (5-31); Blood Urea Nitrogen 14 mg/dL (9-16); Calcium 9.7 mg/dL (8.4-10.2); Carbon Dioxide 28 mmol/L (22-29); Chloride 106 mmol/L (96-108); Creatinine Clr Calc Pharmacy 159.8; Estimated Glomerular Filt Rate > 60; Lipase 20 U/L (8-78); Potassium 4.2 mmol/L (3.3-5.1); Sodium 142 mmol/L (135-145); Total Protein 7.0 g/dL (6.5-8.0)
[2025-06-27 13:34] LABS: COVID-19 Test Negative (Negative); IDNOW Serial# 08D9AD1C; IDNOW Serial# 6674DD1D; Influenza B2 Negative (Negative)
[2025-06-27 13:37] LABS: Troponin-I High Sensitivity < 2.7 ng/L (<3.5-17.0)
[2025-06-27 13:54] LABS: B Type Natriuretic Peptide 48 pg/mL (<100)
[2025-06-27 13:57] LABS: Appearance Urine Clear; Glucose Urine UA Negative (Negative); PH 7.0 (5.0-9.0); Specific Gravity - Urine 1.020 (1.005-1.025); UMIC TRIGGER UACC YES
[2025-06-27 14:06] LABS: D Dimer High Sensitivity < 150 NG/ML
[2025-06-27 14:10] LABS: UACC Culture Trigger YES
[2025-06-27 14:27] VITALS: BP 139/77; PULSE 88; RESP 16; TEMP 36.7; O2SAT 98
== END 2025-06-27 14:28 | disposition home or self-care (01) ==
PROVIDERS: Physician Assistant; Emergency Provider Emergency Medicine; PCP Physician Assistant Medical
DX: R07.89 Other chest pain (principal); R06.00 Dyspnea, unspecified; R42 Dizziness and giddiness; E28.2 Polycystic ovarian syndrome; E03.9 Hypothyroidism, unspecified; R82.90 Unspecified abnormal findings in urine; Z87.891 Personal history of nicotine dependence; Z03.818 Encounter for observation for suspected exposure to other biological agents ruled out
CPT/HCPCS: 36415; 71046; 80053; 81001; 83690; 83880; 84443; 84484; 84702; 85025; 85379; 87086; 87502; 87635; 93005; 99283

== ENCOUNTER → 2025-06-27 12:37 | Outpatient (BNV) | payer OTHER, SELFPAY | PROVIDERS: Emergency Provider Emergency Medicine; PCP Physician Assistant Medical; Visit Provider Internal Medicine | DX: R07.89 Other chest pain (principal) | CPT/HCPCS: 93010 ==

== ENCOUNTER → 2025-06-27 13:37 | Outpatient (BNV) | payer OTHER, SELFPAY | PROVIDERS: Emergency Provider Emergency Medicine; PCP Physician Assistant Medical; Visit Provider Radiology Diagnostic Radiology | DX: R06.00 Dyspnea, unspecified (principal) | CPT/HCPCS: 71046 ==

== ENCOUNTER 2025-09-03 17:17 | Emergency (ER) | payer OTHER, MEDICAID, SELFPAY ==
--- NOTE | ~2025-09-03 | XR_ITS ---
CLINICAL HISTORY: Chest discomfot 2 view chest x-ray Comparison: 06/27/2025 Findings: No consolidation or effusion. Heart size is normal. No acute fracture. IMPRESSION: 1. No acute findings. This document has been electronically signed by: Manuela Nicholas MD on 09/03/2025 18:43:43
--- NOTE | 2025-09-03 17:19 | ECG_ITS ---
Test Reason : CHEST PAIN Blood Pressure : */* mmHG Vent. Rate : 55 BPM Atrial Rate : 55 BPM P-R Int : 150 ms QRS Dur : 92 ms QT Int : 470 ms P-R-T Axes : 48 46 47 degrees QTcB Int : 449 ms Sinus bradycardia RSR' or QR pattern in V1 suggests right ventricular conduction delay Borderline ECG When compared with ECG of 27-Jun-2025 12:48, RSR' pattern in V1 is now Present Referred By: Generic ED Physician Electronically Signed By: Dwight Mccann
[2025-09-03 17:32] VITALS: BP 150/79; PULSE 62; RESP 18; TEMP 36.6; O2SAT 98; BMI 47.4
--- NOTE | 2025-09-03 17:44 | ED_ITS ---
HPI - General Adult General Chief complaint: General Medical Stated complaint: Fitness Sales Consultant called / chest tightness / SOB Time Seen by Provider: 09/03/25 22:02 Source: patient, RN notes reviewed and old records reviewed Mode of arrival: ambulatory Limitations: no limitations History of Present Illness ED Provider: Henry JUAREZ narrative: 25-year-old female with a past medical history significant for bradycardia followed by Cardiology his pain pain She reports that she follows with [facility]. She reports she woke up this morning with chest pain and shortness of breath pain She reports that she ?feels like I am floating. ? She endorses an episode of dizziness today. She takes metoprolol 25 mg daily Denies any fevers, chills, cough. She continues to feel the chest pain that she describes as a tightness achiness the symptoms have been present and constant throughout the day Related Data Previous Rx's ?Medication ?Instructions ?Recorded albuterol sulfate 90 mcg/actuation 2 puff inhalation Q 4-6H PRN 04/29/21 aerosol inhaler (ProAir HFA) shortness of breath or wh eezing #8.5 grams azithromycin 250 mg tablet See Rx Instructions PO .COM PLEX #6 04/29/21 (Zithromax) tabs benzonatate 100 mg capsule 100 mg PO BID PRN cough #10 caps 04/29/21 (Tessalon Perles) Allergies Allergy/AdvReac Type Severity Reaction Status Date / Time No Known Allergies Allergy Verified 09/03/25 17:34 Review of Systems 2 Constitutional: Constitutional: Denies body ache(s), Denies chills, Denies fever(s) and Denies headache(s) Eyes: Eyes: Denies blurry vision and Denies change in vision ENT: Denies vertigo, Reports dizziness, Denies dry mouth and Denies headache(s) Cardiovascular: Cardiovascular: Reports chest pain Respiratory: Respiratory: Denies cough Gastrointestinal: Gastrointestinal: Denies abdominal pain, Denies nausea and Denies vomiting Musculoskeletal: Musculoskeletal: Denies back pain Integumentary/Breasts: Skin/Breast: Denies rash Neurologic: Denies vertigo, Reports dizziness and Denies headache(s) Psychiatric: Psychiatric: Reports anxiety [facility] Past Medical History Medical History Asthma Social History Social History (Updated 06/27/25 @ 13:42 by Tiffany Sosa DO) Patient Tobacco Use Status: Former Tobacco user Advance Directives: No Advance Directives Information Provided: No Do you have a plan to hurt others: No Plan Physical Exam ED Vital Signs: Vital Signs - 24 hr 09/03/25 17:32 09/03/25 20:01 09/03/25 22:35 Temperature 98 F 98.2 F 98.3 F Pulse Rate 62 50 63 Respiratory Rate 18 14 Blood Pressure 150/79 H 103/70 121/85 Pulse Oximetry 98 100 100 Oxygen Delivery Method Room Air Room Air Room Air 09/03/25 22:51 Temperature 98.3 F Pulse Rate 63 Respiratory Rate 14 Blood Pressure 121/85 Pulse Oximetry 100 Oxygen Delivery Method Room Air BMI result Body Mass Index 47.4 Const General: healthy appearing, comfortable, no acute distress, alert and awake Nutritional Appearance: well nourished Orientation/consciousness: patient oriented x3 HENMT Head: Yes normocephalic and Yes atraumatic Throat: Yes posterior oropharynx normal Eyes Eyelids: Yes eyelids normal Conjunctivae: conjunctivae normal Sclerae: sclerae normal Corneas: corneas normal Pupils: Equal, round and reactive pupils present EOM: EOMs intact bilaterally Neck Neck: Yes full ROM Chest Chest palpation & inspection: normal inspection of the chest and no crepitus Resp Effort & Inspection: normal respiratory effort, able to speak in complete sentences, no audible wheezes and not labored Auscultation: clear to auscultation bilaterally Cardio Rate: regular rate Rhythm: regular rhythm GI Inspection: No distended Palpation (GI): Soft to palpation, not firm, nontender, no guarding and not rigid Skin General skin exam: elasticity normal Neuro General: patient oriented x3 Cranial nerves: Yes CN's II-XII intact bilaterally, Yes Equal, round and reactive pupils present and Yes Bilaterally intact EOM present Cognition (Neuro): normal cognition Extrem Other: Moving all extremities well without any obvious deformities Course Course Course Narrative: RME: 25 yold female presents to the ED for chest tightness, pain with dizzziness. Sent from cardiology. labs EKG ordered. Medical Decision Making Medical Decision Making MDM Narrative: 25-year-old female presents for evaluation of chest pain. Has a history of bradycardia and chest pain. She had a workup that included labs, EKG, chest x- ray. Her vital signs remained stable, she has continued to feel chest pain. Her EKG does not show any evidence of ST segment elevation MT. troponin is negative despite her symptoms starting about 12 hours ago this morning. Chest x-ray is clear. She is PERC negative and therefore a PE is extremely unlikely. Her pain may be related to musculoskeletal chest pain, GERD, anxiety, costochondritis ultimately she rules out for emergent pathology Differential Diagnosis Differential Diagnoses: The differential diagnosis associated with the presentation includes As above Lab Data MDM Lab Attestation statement: I reviewed the patient's lab results. No leukocytosis or anemia. Normal platelet count. No electrolyte abnormalities warranting dimension. 09/03/25 18:20 09/03/25 18:19 Labs: Lab Results 09/03/25 09/03/25 Range/Units 18:19 18:20 WBC 7.4 (4.8-10.8) X10*3/uL RBC 4.81 (4.20-5.50) X10*6/uL Hgb 13.6 (12.0-16.0) g/dl Hct 41.7 (37.0-47.0) % MCV 86.7 (80.0-98.0) fL MCH 28.3 (27.0-33.0) pg MCHC 32.6 (31.0-35.0) g/dl RDW 12.3 (11.0-16.0) % Plt Count 294 (160-400) X10*3/uL MPV 11.7 (9.4-12.3) fL Immature Gran % (Auto) 0.1 (0.0-0.4) % Neut % (Auto) 61.7 (45-73) % Lymph % (Auto) 30.1 (20-40) % Weston % (Auto) 6.5 (2-11) % Eos % (Auto) 0.8 (0-4) % Baso % (Auto) 0.8 (0-2) % Lymph # (Auto) 2.2 (1.2-4.9) X10*3/uL Weston # (Auto) 0.5 (0.1-1.2) X10*3/uL Eos # (Auto) 0.1 (0.0-0.4) X10*3/uL Baso # (Auto) 0.1 (0.0-0.2) X10*3/uL Abs Immat Gran (auto) 0.01 (0.00-0.03) X10*3/uL Absolute Neuts (auto) 4.5 (2.0-8.3) x10*3/uL Absolute Nucleated RBC 0.000 (0.0-0.012) X10*3/uL Nucleated RBC % (auto) 0.0 (0.0-0.2) /100WBC PT 12.5 (11.2-13.5) SEC INR 1.0 (0.9-1.1) APTT 35.7 H (26.7-34.1) SEC Sodium 143 (135-145) mmol/L Potassium 3.7 (3.3-5.1) mmol/L Chloride 107 (96-108) mmol/L Carbon Dioxide 27 (22-29) mmol/L Anion Gap 13 (12-20) BUN 18 H (9-16) mg/dL Creatinine 0.68 (0.5-1.4) mg/dL Estim Creat Clear Calc 173.0 Estimated GFR > 60 Random Glucose 102 (60-115) mg/dL Calcium 9.4 (8.4-10.2) mg/dL Troponin I High Sens < 2.7 (<3.5-17.0) ng/L NT-Pro-B Natriuret Pep 54.7 (<300) pg/mL TSH 2.43 (0.32-4.0) uIU/mL Independent Interpretation I performed an independent interpretation of an: EKG and Plain X-Ray (No focal infiltrates or effusions) Interpretation: Sinus bradycardia rate of 55 beats minute. Radiology Impression Discussion of test interpretation with radiology: I have reviewed the radiologist's reading. Radiologist Impression: Findings: No consolidation or effusion. Heart size is normal. No acute fracture. IMPRESSION: 1. No acute findings. This document has been electronically signed by: Manuela Nicholas MD on 09/03/2025 18:43:43 Discharge Plan Discharge Clinical Impression: Atypical chest pain Patient Disposition: Home, Self-Care Instructions: Chest Pain (ED) Additional Instructions: Your workup in the ER today was reassuring. This includes your labs, EKG, chest x-ray. 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 to let them know that you came to the ER to be evaluated and they will provide further evaluation and management Prescriptions: No Action azithromycin [Zithromax] 250 mg tablet See Rx Instructions .ROUTE .COMPLEX Qty: 6 0RF Rx Instructions: take 500 mg today (day 1), then 250 mg for 4 days (days 2-5) albuterol sulfate [ProAir HFA] 90 mcg/actuation HFA aerosol inhaler 2 puff inhalation Q4-6H PRN (Reason: shortness of breath or wheezing) Qty: 8.5 2RF benzonatate [Tessalon Perles] 100 mg capsule 100 mg PO BID PRN (Reason: cough) Qty: 10 0RF Interventions: ED Discharge Assessment Last Done: 09/03/25 22:51 Print Language: Albanian
[2025-09-03 18:25] LABS: MANUAL DIFF FLAG NO
[2025-09-03 18:39] LABS: Anion Gap 13 (12-20); Blood Urea Nitrogen 18 mg/dL (9-16); Calcium 9.4 mg/dL (8.4-10.2); Carbon Dioxide 27 mmol/L (22-29); Chloride 107 mmol/L (96-108); Creatinine Clr Calc Pharmacy 173.0; Estimated Glomerular Filt Rate > 60; Potassium 3.7 mmol/L (3.3-5.1); Sodium 143 mmol/L (135-145)
[2025-09-03 18:42] LABS: Hematocrit 41.7 % (37.0-47.0); Hemoglobin 13.6 g/dl (12.0-16.0); Imm Gran Abs Auto 0.01 X10*3/uL (0.00-0.03); Imm Gran Pct Auto 0.1 % (0.0-0.4); Lymphocytes Absolute Auto 2.2 X10*3/uL (1.2-4.9); Mean Corpuscular HGB Conc 32.6 g/dl (31.0-35.0); Mean Corpuscular Hemoglobin 28.3 pg (27.0-33.0); Mean Corpuscular Volume 86.7 fL (80.0-98.0); NRBC Abs Auto 0.000 X10*3/uL (0.0-0.012); NRBC Pct Auto 0.0 /100WBC (0.0-0.2); Platelet Count 294 X10*3/uL (160-400); Red Blood Count 4.81 X10*6/uL (4.20-5.50); White Blood Count 7.4 X10*3/uL (4.8-10.8)
[2025-09-03 18:47] LABS: Troponin-I High Sensitivity < 2.7 ng/L (<3.5-17.0)
[2025-09-03 18:48] LABS: NT Pro B Type Natriuretic Pept 54.7 pg/mL (<300)
[2025-09-03 18:54] LABS: INTERNATIONAL NORM RATIO 1.0 (0.9-1.1); Prothrombin Time 12.5 SEC (11.2-13.5)
[2025-09-03 18:56] LABS: Partial Thromboplastin Time 35.7 SEC (26.7-34.1)
[2025-09-03 20:01] VITALS: BP 103/70; PULSE 50; TEMP 36.8; O2SAT 100
--- OUTSIDE RECORDS SUMMARY | 2025-09-03 20:22 | XMS_ITS | Clinical Summary ---
Author Organization [facility] Address [address] [place] [id number] Phone Care Team Providers Care Production Material Handler Name Role Phone Unavailable Primary Care Provider [...] HPV Vaccines (1 - 3-dose series) 01/27/2016 Influenza Vaccines (#1) 2025 08/14/20, 09/13/2005, 09/02/2004, Additional history exists COVID-19 Vaccine (2024- season) 2025 HIB Vaccines Completed 04/02/2003, 07/30, 2001, Additional [...]
--- OUTSIDE RECORDS SUMMARY | 2025-09-03 20:22 | XMS_ITS | Encounter Summary ---
Author Organization [facility] Address [address] [place] [phone] Phone Care Team Providers Care [employer] Ticket Sales Name Role Phone Tashia Matute NP Primary Care Provider Katiuska hebert Encounter Details Date Type Department Care Team (Late st Contact Info) Description 06/15/2017 Conversion Encounter [facility] - [address] [address] Social History Tobacco Use Types Packs/Day Years [...] on filedocumented in this encounter Care Teams [employer] Ticket Sales Relationship Specialty Start Date End Date Tashia Matute NP PCP - General 06/09/17 04/19/23 documented as of this encounter
--- OUTSIDE RECORDS SUMMARY | 2025-09-03 20:23 | XMS_ITS | Encounter Summary ---
Author Organization [facility] Address [address] [place] [address] Care Team Providers Care Lawn Sprinkler Installer Name Role Phone Brandon Crabtree Primary Care Provider [phone] Encounter Details Date Type Department Care Team ([facility] st Contact Info) Description 07/28/2025 Results Follow-Up Adult Medicine [facility] [address] [place] [address] Ita Chapman MD [address] [place], [place] Social History Tobacco Use Types Packs/Day Years [...] care for your loved ones. For example, child psychiatrist or elderly care for an older adult? [...] Date Recorded What is your living situation? Unrecognized valu e 03/14/2025 Comments No Sex and Gender Information Value Date Recorded Sex Assigned at Not on file Legal Sex Female 5:16 AM EST Gender Identity Not on file Sexual Orientation Not on file documented as of this encounter Plan of Treatment Upcoming Encounters Date Type Department Care Team (Late st Contact Info) Description 09/19/2025 9:30 AM EST Office Visit Adult Medicine [facility] [address] [place], [place] [phone] Mary Ureña PA [address] [place], [place] documented as of this encounter Visit Diagnoses Not on filedocumented in this encounter Additional Health Concerns Assessment Noted Time PHQ-9 Depression Total Score: 3 07/25/20 25 12:29 PM EDT documented as of this encounter Care Teams Lawn Sprinkler Installer Relationship Specialty Start Date End Date Brandon Crabtree PA [address] [place] [address] PCP - General Internal Medicine 10/28/21 documented as of this encounter
--- OUTSIDE RECORDS SUMMARY | 2025-09-03 20:23 | XMS_ITS | Clinical Summary ---
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 exhibit normal excursion. There is trace regurgitation. There is no evidence of tricuspid valve stenosis. The right ventricular systolic pressure is normal. The RVSP is estimated at 22 mmHg. Aortic Valve The aortic valve is trileaflet. There is no regurgitation or stenosis. Pulmonic Valve Pulmonic valve structure is normal. There is trace pulmonic valve regurgitation. There is no evidence of pulmonic valve stenosis. Ascending Aorta The aorta appears normal in size. Pericardium There is no pericardial effusion. Study Details Overall the study quality was adequate. Definity contrast was given to enhance imaging. Study was difficult due to: poor endocardial visualization. us Brenna Key MD CV ECHO PROCEDURES Final Result * External Xray Report (06/27/2025) Only the most recent of2 resultswithin the time period is included. Anatomical Region Laterality Modality Radiographic Leonie ging Provider [facility] IMG XR PROCEDURES Final Result * ECG 12 lead (06/26/2025 3:25 PM EDT) Ita Chapman MD ECG ORDERABLES Fi nal Result * Magnesium (06/26/2025 2:08 PM EDT) [facility] Magnesium 2.0 1.9 - 2.6 mg/dL LAB CHEMISTRY METHOD 06/26/2025 5:08 PM EDT [facility] Blood Venous blood specimen / Unknown Venipuncture / Unknown 06/26/2025 2:08 PM EDT 06/26/2025 2:08 PM EDT Result [facility] Ita Chapman MD LAB BLOOD ORDERABL ES Final Result [facility] [address] [place] [address], [place] [phone] * (ABNORMAL) POC Urine Auto W/O Micro (06/26/2025 1:48 PM EDT) [facility] Leukocytes UA POC Negative Negative Nitrite UA POC Negative Negative Urobilinogen UA POC Negative Negative Protein UA POC Negative Negative PH UA POC 5.0 5.0 - 9.0 Blood UA POC Negative Negative, Trace Specific Dexter UA POC 1.000(A) 1.001 - 1.035 Ketones [...] glucose manually resulted (06/26/2025 1:47 PM EDT) [facility] Glucose POC 96 mg/dL Blood Capillary blood specimen / Unknown 06/26/2025 1:47 PM EDT Result [facility] Ita Chapman MD POINT OF CARE TEST ENTER/EDIT ORDERABLES Final Result * Depression Screening (07/25/2024) [facility] Depression Screening abstracted Result [facility] Provider HEALTH MAINTENANCE Final Result * (ABNORMAL) Lipid panel (07/25/2024) [facility] LDL/HDL Ratio 4 0 - 4 Triglycerides 69 0 - 150 mg/dL Cholesterol 199 0 - 200 mg/dL HDL 48 >=40 mg/dL LDL Cholesterol 138(A) 0 - 100 mg/dL Blood Venous blood specimen / Unknown Result [facility] Provider LAB BLOOD ORDERABLES Nancy l Result * Pap Smear (09/07/2023) [facility] Pap smear negative, abstracted Result [facility] Provider HEALTH MAINTENANCE Final Result * Gonorrhea/Chlamydia Screening (10/25/2022) [facility] Gonorrhea/Chla mydia Screening abstracted Result [facility] Provider HEALTH MAINTENANCE Final Result from Last 3 Months or Most Recently Relevant to Health Maintenance Insurance [facility] Care Teams [place] Service Attendant Relationship Specialty Start Date End Date Brandon Crabtree PA [address] [place] [address] PCP - General Internal Medicine 10/28/21
--- OUTSIDE RECORDS SUMMARY | 2025-09-03 20:23 | XMS_ITS | Encounter Summary ---
[facility] Organization [facility] Address [address] [place] [address] Care Team Providers Care Analytical Lab Analyst Name Role Phone Brandon Crabtree Primary Care Provider [phone] Encounter Details Date Type Department Care Team (Late st Contact Info) Description 07/28/2025 Results Follow-Up [facility] Hematology Oncology [address] [place] [address] Viktoriya Thrasher MA Social History Tobacco Use Types Packs/Day [...] care for your loved ones. For example, teacher early childhood development or elderly care for an older adult? [...] 9:30 AM EST Office Visit Adult Medicine [address] [phone] Mary Ureña PA [address] [place], [place] documented as of this encounter Visit Diagnoses Not on filedocumented in this encounter Additional Health Concerns Assessment Noted Time PHQ-9 Depression Total Score: 3 07/25/20 25 12:29 PM EDT documented as of this encounter Care Teams Analytical Lab Analyst Relationship Specialty Start Date End Date Brandon Crabtree PA [address] [place] [address] PCP - General Internal Medicine 10/28/21 documented as of this encounter
--- OUTSIDE RECORDS SUMMARY | 2025-09-03 20:23 | XMS_ITS | Encounter Summary ---
[facility] [address] [place] [address] Care Team Providers Care Senior Qa Automation Engineer Name Role Phone Brandon Crabtree Primary Care Provider [phone] Encounter Details Date Type Department Care Team (Late st Contact Info) Description 07/28/2025 Results Follow-Up Adult Medicine [facility] [address] [place], [place] [phone] Mary Ureña PA [address] [place], [place] Social History Tobacco Use Types Packs/Day [...] for your loved ones. For example, child development teacher or elderly care for an older adult? [...] 9:30 AM EST Office Visit Adult Medicine [facility] [address] [place] [address] Mary Ureña PA [address] [place], [place] documented as of this encounter Visit Diagnoses Not on filedocumented in this encounter Additional Health Concerns Assessment Noted Time PHQ-9 Depression Total Score: 3 07/25/20 25 12:29 PM EDT documented as of this encounter Care Teams Senior Qa Automation Engineer Relationship Specialty Start Date End Date Brandon Crabtree PA [address] [place] [address] PCP - General Internal Medicine 10/28/21 documented as of this encounter
--- OUTSIDE RECORDS SUMMARY | 2025-09-03 20:23 | XMS_ITS | Encounter Summary ---
Author Organization [facility] Address [address] [place] [address] Care Team Providers Care Breast Buffer Name Role Phone Brandon Crabtree Primary Care Provider [phone] Reason for Visit * Reason Onset Date Comments Chest Pain 09/03/2025 Encounter Details Date Type Department Care Team ([facility] st Contact Info) Description 09/03/2025 Telephone [facility] [address] [facility] [address] [place] [address] Brenna Key MD [address] [place] [address] [place] [address] Social History Tobacco Use Types Packs/Day Years [...] for your loved ones. For example, child care aide or elderly care for an older [...] as of this encounter Progress Notes * Seda Sarmiento RN - 09/03/2025 4:02 PM EST Spoke w/pt's mother. Pt at work at time of call, pt works at [employer] in [place]. Contacted pt's employer to get a hold of her for an assessment. Vitals Today at 12:30 listed in previous message. Chest discomfort started a few months ago that was intermittent but today was worse. Chest pressure/squeezing has lasted all day. Feeling winded. Dizzy today for 2 hours while standing at register. Sob some and took asthma inhaler, minimally helpful. Reviewed meds. Pt states that she has not been taking her thyroid medications for the past 3 weeks because she couldn't afford it. Continues to take metoprolol daily-has not missed doses of that. Swollen ankles x1 week. Has not taken any furosemide for it. Reviewed concerns and advised that pt be evaluated in the ER. Pt resistant to ER eval, but explained risks of not being evaluated for unresolved chest discomfort. Pt verbalized understanding and willgo to [place] [facility]. Expect called to Jaspal at [facility]. * Dena Gonzalez - 09/03/2025 3:42 PM EST Patient's mom Kevin called and stated that lately, the patient has been experiencing a pressure in her chest. She says that the patient's blood pressure today was 145/95 and her pulse was 64. Patientis okay right now. Kevin said that the patient is at work right now, and her phone doesn't work. Kevin said to call her phone at [phone]. documented in this encounter Plan of Treatment Upcoming Encounters Date Type Department Care Team (Late st Contact Info) Description 09/19/2025 9:30 AM EST Office Visit Adult Medicine [address] [phone] Mary Ureña PA [address] [place] [address] documented as of this encounter Visit Diagnoses Not on filedocumented in this encounter Additional Health Concerns Assessment Noted Time PHQ-9 Depression Total Score: 3 07/25/20 25 12:29 PM EDT documented as of this encounter Care Teams Breast Buffer Relationship Specialty Start Date End Date Brandon Crabtree PA [address] [place] [address] PCP - General Internal Medicine 10/28/21 documented as of this encounter
[2025-09-03 22:35] VITALS: BP 121/85; PULSE 63; RESP 14; TEMP 36.8; O2SAT 100
[2025-09-03 22:51] VITALS: BP 121/85; PULSE 63; RESP 14; TEMP 36.8; O2SAT 100
== END 2025-09-03 22:51 | disposition home or self-care (01) ==
PROVIDERS: Physician Assistant; Emergency Provider Emergency Medicine; PCP Physician Assistant Medical
DX: R07.9 Chest pain, unspecified (principal); R06.02 Shortness of breath; R00.1 Bradycardia, unspecified; J45.909 Unspecified asthma, uncomplicated; Z87.891 Personal history of nicotine dependence
CPT/HCPCS: 36415; 71046; 80048; 83880; 84443; 84484; 85025; 85610; 85730; 93005; 99283; 99284

== ENCOUNTER → 2025-09-03 17:19 | Outpatient (BNV) | payer OTHER, MEDICAID, SELFPAY | PROVIDERS: Emergency Provider Emergency Medicine; PCP Physician Assistant Medical; Visit Provider Internal Medicine Cardiovascular Disease | DX: R00.1 Bradycardia, unspecified (principal) | CPT/HCPCS: 93010 ==

== ENCOUNTER → 2025-09-03 17:44 | Outpatient (BNV) | payer OTHER, SELFPAY | PROVIDERS: Visit Provider Student in an Organized Health Care Education/Training Program | DX: R07.89 Other chest pain (principal) | CPT/HCPCS: 71046 ==